=== PATIENT | male | born 1980 | race Hispanic/Latino ===

== ENCOUNTER 2021-03-05 06:54 | Emergency (ER) | payer OTHER, MEDICAID, SELFPAY ==
[2021-03-05 07:01] VITALS: BP 135/81; PULSE 100; PULSE 97; RESP 16; TEMP 36.8; O2SAT 100
--- NOTE | 2021-03-05 07:25 | ED.ALLEREA ---
HPI - Allergic Reaction General Chief complaint: Shortness of Breath/Dyspnea Stated complaint: trouble breathing Time Seen by Provider: 03/05/21 07:16 Source: patient Mode of arrival: ambulatory Limitations: no limitations History of Present Illness HPI narrative: Patient is a 40-year-old male complaining of throat discomfort felt like it is closing after eating shrimp last night. Patient states that he had a similar reaction in the past eating shrimp. Patient denies any lip, tongue or facial swelling. Patient denies any shortness of breath. Patient denies any rash. Related Data Allergies Allergy/AdvReac Type Severity Reaction Status Date / Time No Known Allergies Allergy Unverified 11/18/16 14:38 Review of Systems Review of Systems: All systems reviewed & are unremarkable except as noted in HPI and below Constitutional: Constitutional: Denies body ache(s), Denies chills, Denies excessive sweating, Denies fatigue, Denies fever(s), Denies headache(s), Denies lethargy, Denies malaise, Denies weakness and Denies weight loss Eyes: Eyes: Denies blurry vision, Denies change in vision and Denies loss of vision ENT: Denies dizziness, Denies ear discharge, Denies headache(s), Denies lip swelling, Denies epistaxis, Denies nasal congestion, Denies neck pain and Denies tongue swelling Cardiovascular: Cardiovascular: Denies chest pain, Denies chest pain at rest, Denies chest pain with activity, Denies diaphoresis, Denies rapid heart rate, Denies edema, Denies irregular heart rhythm, Denies lightheadedness, Denies palpitations, Denies dyspnea and Denies dyspnea on exertion Respiratory: Respiratory: Denies chest congestion, Denies cough, Denies hemoptysis, Denies dyspnea and Denies dyspnea on exertion Gastrointestinal: Gastrointestinal: Denies abdominal pain, Denies melena, Denies hematochezia, Denies diarrhea, Denies nausea, Denies vomiting and Denies hematemesis Musculoskeletal: Musculoskeletal: Denies abnormal gait, Denies deformity, Denies joint swelling, Denies limited range of motion, Denies neck pain and Denies numbness Neurologic: Denies Abnormal speech present, Denies abnormal gait, Denies confusion, Denies dizziness, Denies headache(s), Denies focal weakness, Denies loss of vision, Denies numbness, Denies Other visual disturbances, Denies Sensory deficit (Neuro) and Denies weakness Psychiatric: Psychiatric: Denies confusion, Denies depression, Denies auditory hallucinations, Denies homicidal ideation and Denies suicidal ideation Endocrine: Endocrine: Denies cold intolerance, Denies excessive sweating, Denies fatigue, Denies heat intolerance and Denies palpitations Hematologic/Lymphatic: Hematologic/Lymphatic: Denies easy bleeding and Denies easy bruising Allergic/Immunologic: Allergic/Immunologic: Denies lip swelling, Denies throat swelling and Denies tongue swelling PMFSH Comments Past medical history: None Family history: Hypertension Social history: Non-smoker no EtOH or drug use Exam Const: General: cooperative, healthy appearing, comfortable, no acute distress, well developed, alert and awake; No confusion Orientation/consciousness: oriented to person, oriented to place, oriented to time, patient oriented x3 and No confusion Limitations: no limitations HENMT: Head: normal to inspection, normocephalic and atraumatic Ears: hearing grossly normal bilaterally, TM normal on the right and TM normal on the left General nose exam: Normal external nose present, Normal nares present and No nasal discharge present Face and sinus: normal facial exam Mouth: Yes Normal oral and palatal mucosa present, Yes lip normal, Yes tongue normal and Yes oropharynx normal Throat: posterior oropharynx normal, tonsils normal and uvula midline Other: Negative for lip, tongue or throat swelling. Patent airway. Clear oropharyngeal area. Eyes: General: appearance normal, both eyes and all related structures Pupils: Equal, round and reactive pupils
[2021-03-05] MEDS: FAMOTIDINE 20 MG TABLET PO (07:55)
[2021-03-05] MEDS: diphenhydrAMINE HCl CAP 25 MG CAPSULE 50 MG PO (07:55)
[2021-03-05 08:05] VITALS: BP 115/73; PULSE 88; RESP 20; O2SAT 98
== END 2021-03-05 08:08 | disposition home or self-care (01) ==
PROVIDERS: Emergency Provider Emergency Medicine; PCP Registered Nurse
DX: T78.40XA Allergy, unspecified, initial encounter (principal)
CPT/HCPCS: 96372; 99283; A9270; J1100

== ENCOUNTER 2024-03-25 16:29 | Emergency (ER) | payer BC, MEDICAID, SELFPAY ==
[2024-03-25 16:40] VITALS: BP 116/70; PULSE 87; RESP 16; TEMP 36.6; O2SAT 100
--- NOTE | 2024-03-25 17:17 | ED_ITS ---
HPI - URI/Sore Throat General Chief Complaint: Upper Respiratory Infection Stated Complaint: throat and chest pain Time Seen by Provider: 03/25/24 17:19 Source: patient and RN notes reviewed Mode of arrival: ambulatory Limitations: no limitations History of Present Illness HPI Narrative: 43-year-old male presents with concern for cough, chest congestion, chest burning with coughing, sore throat. He reports his family member has influenza. He reports he has taken ibuprofen. Denies fever. Reports body aches. Denies shortness of breath MD elicited complaint: cough and sore throat Related Data Allergies Allergy/AdvReac Type Severity Reaction Status Date / Time No Known Allergies Allergy Verified 03/25/24 16:44 Review of Systems Review of Systems: CONSTITUTIONAL: Denies malaise, chills, sweats, or fever. EYES: Denies visual changes, redness, or discharge. ENT: Denies rhinorrhea, congestion, sinus pain, otalgia. Reports sore throat. CARDIOVASCULAR: Denies chest pain, palpitations, or edema. RESPIRATORY: Reports cough, chest congestion, chest burning. Denies dyspnea. GASTROINTESTINAL: Denies abdominal pain, nausea, vomiting, diarrhea SKIN: Denies rash or itching. MUSCULOSKELETAL: Denies myalgia. NEUROLOGIC: Denies headache. All systems reviewed & are unremarkable except as noted in HPI and below PMFSH Comments At time of signature, agree with nursing past medical, surgical, social and family history. There is no relevant family history pertinent to the presenting complaint Exam Narrative: GENERAL: Well-appearing, well-nourished, and in no acute distress. HEAD: Normocephalic EYES: PERRLA, conjunctivae clear ENT: Nares clear, turbinates edematous and erythematous, clear discharge. Mucous membranes moist. TM pearly brown with sharp light reflex bilaterally; no tragal tenderness. Oropharynx not erythematous without lesions. Tonsils not enlarged and without exudate, no drooling, no hoarseness, no trismus, uvula midline. NECK: Supple. No lymphadenopathy CHEST: Clear to auscultation, breath sounds equal. No wheezing, rhonchi, rales, or stridor. No respiratory distress, speaks in full sentences. HEART: Regular rate and rhythm. No murmur heard. SKIN: Warm, dry, no rash. NEURO: Alert and oriented x3. PSYCH: Normal mood and affect Course Course Emergency Course: Patient is aware of diagnosis, understands and agrees to treatment plan. Anticipatory guidance given. Patient agrees to follow-up as directed and is aware of reasons to seek care at the emergency department. Portions of this record may have been created with voice recognition software Level of Care: Express Care Visit Vital Signs Vital signs: Vital Signs Temperature 97.8 F 03/25/24 16:40 Pulse Rate 87 03/25/24 16:40 Respiratory Rate 16 03/25/24 16:40 Blood Pressure 116/70 03/25/24 16:40 Pulse Oximetry 100 03/25/24 16:40 Oxygen Delivery Room Air 03/25/24 16:40 Temperature 97.8 F 03/25/24 16:40 Pulse Rate 87 03/25/24 16:40 Respiratory Rate 16 03/25/24 16:40 Blood Pressure 116/70 03/25/24 16:40 Pulse Oximetry 100 03/25/24 16:40 Oxygen Delivery Room Air 03/25/24 16:40 Reviewed. MDM - URI/Sore Throat MDM Narrative Medical decision making narrative: Differential diagnosis considered: Avery virus, strep pharyngitis, allergic rhinitis, upper respiratory tract infection, sinusitis, rhinosinusitis, nasopharyngitis. viral pharyngitis, otitis media, otitis externa, pneumonia, bronchitis, viral cough syndrome, viral syndrome, and influenza. Exam findings show no acute concerns or changes; patient is non-toxic appearing and is in no distress. Patient is appropriate for outpatient treatment and follow-up. Lab Data Attestation: I reviewed the patient's lab results. Critical Care Time Critical Care Time Critical Care Time: No Discharge Plan Discharge Clinical Impression: Influenza-like illness Patient Disposition: Home, Self-Care Condition: Stable Instructions: Viral Syndrome (ED) Additional Instructions: Your rapid influenza test is negative. It may be too early to test it may be falsely negative. Because you have been exposed to flu you should assume a virus that is contagious -Take strict precautions to prevent the spread of your virus. Be diligent about covering your cough (even when you are alone) and washing your hands frequently. -You may contagious until you have been symptom and/or fever free for 24 hours without fever reducing medicine -Alternate Ibuprofen and Tylenol for pain and fever relief (per package directions) -Some Cough medicines may make you drowsy, do not take it if you have to make important decisions, drive, or work. -Drink plenty of fluid - drink fluid with electrolytes such as Gatorade or other oral re-hydration solution. Avoid caffeine, which can make dehydration worse. -Get plenty of rest to help your body heal. -Use a cool mist humidifier for chest and nasal congestion. -Eat RAW honey or use cough drops to ease throat discomfort -Do not smoke or expose children to secondhand smoke -Wash your hands frequently. -Please follow-up with your primary care doctor in the next 1-2 days if your symptoms do not improve. -If you have any worsening of symptoms or any other concerns please go to the ED immediately. -Please take medications as prescribed and continue taking your home medications as usual. Ruff prueba r?pida de influenza es negativa. Puede que sea demasiado pronto para realizar la prueba, ya que puede ser un falso negativo. Debido a que davis estado expuesto a la gripe, debe asumir que se trata de un virus que es contagioso. -[place] precauciones estrictas para evitar la propagaci?n de ruff virus. Sea diligente en cubrirse la tos (incluso cuando est? solo) y lavarse las richard con frecuencia. -Puede contagiar hasta que no haya tenido s?ntomas y/o fiebre aj 24 horas sin medicamentos para reducir la fiebre. -Alternar ibuprofeno y Tylenol para aliviar el dolor y la fiebre (seg?n las instrucciones del paquete) -Algunos medicamentos para la tos pueden causarle somnolencia, no los tome si tiene que sabas decisiones importantes, conducir o trabajar. -Shi mucho l?quido: shi l?quidos con electrolitos adarsh Gatorade u otra soluci?n de rehidrataci?n oral. Evite la cafe?na, que puede empeorar la deshidrataci?n. -Descanse lo suficiente para ayudar a que ruff cuerpo se recupere. -Utilice un humidificador de vapor fr?o para la congesti?n nasal y del pecho. -Coma miel CRUDA o use pastillas para la tos para aliviar el malestar de garganta. -No fumar ni exponer a los ni?os al humo de segunda mano. -L?vate las richard con frecuencia. -Imelda un seguimiento con ruff m?dico de atenci?n primaria en los pr?ximos 1 o 2 d?as si cirilo s?ntomas no mejoran. -Si cirilo s?ntomas empeoran o tiene alguna otra inquietud, acuda al servicio de urgencias de inmediato. -[place] los medicamentos seg?n lo recetado y contin?e tomando los medicamentos que tiene en casa adarsh de costumbre. Patient Language: Tu[place] Prescriptions: New promethazine-DM 6.25-15 mg/5 mL syrup 5 ml PO Q4-6H PRN (Reason: cough) Qty: 120 0RF No Action famotidine [Pepcid] 20 mg tablet 20 mg PO BID Qty: 10 0RF Follow-up/Referrals: Don,FREDO Nair [Primary Care Provider] - Stand Alone Forms: Work/School Release IP Time of Disposition: 17:44
[2024-03-25 17:56] LABS: EDINFLUASCREEN Negative (Negative); EDINFLUBSCREEN Negative (Negative)
== END 2024-03-25 17:49 | disposition home or self-care (01) ==
PROVIDERS: Emergency Provider Nurse Practitioner; PCP Registered Nurse
DX: J11.1 Influenza due to unidentified influenza virus with other respiratory manifestations (principal)
CPT/HCPCS: 87804; 99213; G0463